=== PATIENT | male | born 1935 | race Caucasian/White ===

== ENCOUNTER 2018-09-16 12:32 | Observation (INO) | payer OTHER ==
[~2018-09-16] VITALS: Ht 185.4 cm; Wt 102.1 kg
[2018-09-16] MEDS ORDERED: ALBUTEROL/IPRATROPIUM 3 ML NEB NEB ONE (13:15)
[2018-09-16 13:33] LABS: BASOPHILS % 0.3 % (0.0-1.0); EOSINOPHILS # (AUTO) 0.1 (0.0-0.4); EOSINOPHILS % 1.2 % (0.0-6.0); HEMATOCRIT 31.3 % (38.2-49.6); LYMPHOCYTES # (AUTO) 1.1 (1.0-3.2); LYMPHOCYTES % 19.1 % (18.0-39.1); MEAN CORPUSCULAR HEMOGLOBIN 34.5 pg (28-32); MEAN CORPUSCULAR HGB CONC 31.9 g/dL (31-35); MEAN CORPUSCULAR VOLUME 107.9 fL (81-99); MONOCYTES # (AUTO) 0.9 (0.2-0.8); MONOCYTES % 14.7 % (4.4-11.3); NEUTROPHILS # (AUTO) 3.8 (2.1-6.9); NEUTROPHILS % 63.7 % (38.7-80.0); PLATELET COUNT 402 x10e3/uL (140-360); RED CELL DISTRIBUTION WIDTH 13.9 % (11.7-14.4)
[2018-09-16 13:37] LABS: INR 1.04; PROTHROMBIN TIME 14.5 seconds (11.9-14.5)
[2018-09-16 13:38] LABS: PARTIAL THROMBOPLASTIN TIME 38.3 seconds (23.8-35.5)
--- NOTE | 2018-09-16 13:45 | Diagnostic Imaging Report ---
Examination: Single AP view of the chest. COMPARISON: None. INDICATION: Shortness of breath DISCUSSION: Lines/tubes: None. Lungs: Pulmonary venous congestion with edema. Scattered calcified granuloma. Pleura: Probable small effusions. Heart and mediastinum: The heart and the mediastinum are unremarkable. Bones and soft tissues: No acute bony abnormalities. IMPRESSION: Interstitial pulmonary edema Signed by: Dr. Ricco Jackman M.D. on 09/16/2018 1:41 PM
[2018-09-16 13:46] LABS: ALANINE AMINOTRANSFERASE 11 IU/L (0-55); ALBUMIN 2.7 g/dL (3.5-5.0); ALBUMIN/GLOBULIN RATIO 0.7 (0.8-2.0); ALKALINE PHOSPHATASE 65 IU/L (40-150); ANION GAP 16.7 mmol/L (8-16); BLOOD UREA NITROGEN 16 mg/dL (7-26); BUN/CREATININE RATIO 15 (6-25); CALCIUM 8.7 mg/dL (8.4-10.2); CARBON DIOXIDE 23 mmol/L (22-29); CHLORIDE 102 mmol/L (98-107); CREATINE KINASE 37 IU/L (30-200); CREATININE, SERUM 1.09 mg/dL (0.72-1.25); EST GLOMERULAR FILTRATION RATE > 60 ML/MIN (60-); GLUCOSE 94 mg/dL (74-118); POTASSIUM 3.7 mmol/L (3.5-5.1); SODIUM 138 mmol/L (136-145)
[2018-09-16 14:02] LABS: ABG HCO3 23 mmol/L (23-28); ABG PCO2 35 mmHg (41-51); ABG PH 7.43 (7.31-7.41); ABG PO2 76 mmHg (80-105)
[2018-09-16] MEDS ORDERED: DIPHENHYDRAMINE HCL 25 MG CAP PO PRN (14:15)
[2018-09-16] MEDS ORDERED: SODIUM CHLORIDE FLUSH 10 ML SYR INJ PRN (14:15)
[2018-09-16] MEDS ORDERED: ASPIRIN 81 MG CHEW TAB PO ONE (14:15)
[2018-09-16] MEDS ORDERED: ALBUTEROL/IPRATROPIUM 3 ML NEB NEB PRN (14:15)
[2018-09-16] MEDS ORDERED: MORPHINE SULFATE 2 MG/ML SYR IV PRN (14:15)
[2018-09-16] MEDS ORDERED: ACETAMINOPHEN 325 MG TAB PO PRN (14:15)
[2018-09-16] MEDS ORDERED: ONDANSETRON HCL INJ 2 MG/ML VIAL IV PRN (14:15)
[2018-09-16] MEDS ORDERED: DEXTROSE 50% SYRINGE 50 ML IV PRN (14:30)
[2018-09-16] MEDS ORDERED: ENOXAPARIN SODIUM INJ 100 MG/ML SYR SC SCH (14:45)
--- OUTSIDE RECORDS SUMMARY | 2018-09-16 14:52 | XMS REPORT ---
Author Author [facility] Address Unknown Phone Unavailable Care Team Providers Care Precision Machine Operator Name Role Phone Sloan SMITH Unavailable Unavailable Problems This patient has no known problems. Allergies, Adverse Reactions, Alerts This patient has no known allergies or adverse reactions. Medications This patient has no known medications. Results Test Description Test Time Test Comments Text Results Atomic Results Result Comments CHEST SINGLE (PORTABLE) 2018-09-16 13:38:00 [place] [address] Patient Name: CRISTINA MEJIA MR #: [id number] : 1935 Age/Sex: 83/M Req #: [id number] Adm Physician: Ordered by: CHASTITY SMITH MD Report #: [id number] Location: ER Room/Bed: Procedure: [id number] DX/CHEST SINGLE (PORTABLE) Exam Date: 09/16/18 Exam Time: 1320 REPORT STATUS: Signed Examination: Single AP view of the chest. COMPARI SON: None. INDICATION: Shortness of breath DISCUSSION: Lines/tubes: None. Lungs: Pulmonary venous congestion with edema. Scattered calcified granuloma. Pleura: Probable small effusions. Heart and mediastinum: The heart and the mediastinum are unremarkable. Bones and soft tissues: No acute bony abnormalities. IMPRESSION: Interstitial pulmonary edema Signed by: Dr. Chirag Díaz M.D. on 09/16/2018 1:41 PM Dictated By: CHIRAG DÍAZ MD 1341 Transcribed By: RODY on 11/16/17 1341 COPY TO: CHASTITY SMITH MD
[2018-09-16] MEDS ORDERED: FUROSEMIDE INJ 10 MG/ML 2 ML VIAL IV ONE (15:10)
[2018-09-16] MEDS ORDERED: FUROSEMIDE INJ 10 MG/ML 4 ML VIAL IV ONE (15:45)
[2018-09-16] MEDS ORDERED: HYDROCODONE/APAP 10MG-325MG TAB PO PRN (15:45)
[2018-09-16] MEDS ORDERED: INSULIN REGULAR, HUMAN 100 UNIT/1 ML 3ML VIAL SQ SCH (16:30)
[2018-09-16] MEDS: INSULIN LISPRO 100 UNIT/1 ML 3ML VIAL SQ SCH ×2 (16:30→21:52)
[2018-09-16 16:52] VITALS: BP 161/71
[2018-09-16] MEDS ORDERED: FAMOTIDINE 20 MG/2 ML VIAL IV SCH (17:00)
[2018-09-16 17:08] VITALS: BP 161/71
[2018-09-16] MEDS: METFORMIN HCL 500 MG TAB CR PO SCH (18:43)
--- NOTE | 2018-09-16 19:46 | Consultation ---
DATE OF CONSULTATION: September 16, 2018 CARDIOLOGY CONSULTATION REFERRING PHYSICIAN: Dr. Ricco Doan. REASON FOR CONSULTATION: Shortness of breath. HISTORY OF PRESENT ILLNESS: Mr. Chu is a pleasant 83-year-old man with history of diabetes mellitus, hypertension, dyslipidemia, morbid obesity, COPD and CAD with prior remote stents placed 5 years ago, who presents to [facility] via the emergency department after being referred from his doctor's office for abnormal chest x-ray findings reportedly with pulmonary edema in the setting of gradually worsening dyspnea on exertion and orthopnea as well as leg edema reported by patient. He denies any chest pain. He denies any syncope or palpitations. REVIEW OF SYSTEMS: A 12-system review negative except for as noted above. ALLERGIES: TO SULFA PER EMR. PAST MEDICAL HISTORY: As per HPI. SOCIAL HISTORY: No active smoking. Denies alcohol or drugs. FAMILY HISTORY: Significant for CAD. PHYSICAL EXAMINATION VITAL SIGNS: Temperature 97.9, heart rate 93 to 100, respiratory rate 22, blood pressure 115/52 up to 161/71, O2 sat 96% on 2 liters per minute nasal cannula. GENERAL: In no acute distress. NECK: JVD elevated to lower third of neck, sitting upright. CHEST: With decreased breath sounds in bilateral bases, scattered rales. CARDIOVASCULAR: Regular rate and rhythm. Normal S1 and S2. A systolic ejection murmur 2/6 crescendo at the right upper base. ABDOMEN: Soft, nontender. EXTREMITIES: 1+ edema to bilateral lower extremities. CARDIOVASCULAR MEDICATIONS: Reviewed. 1. Aspirin 81 mg daily. 2. Tamsulosin 0.4 mg nightly. 3. Atorvastatin 10 mg nightly. 4. Clopidogrel 75 mg daily. 5. Carvedilol 3.125 mg daily. Will switch to q.12 h. dosing. 6. Lisinopril 2.5 mg daily. STUDIES: Reviewed. White blood cells 5.9, hemoglobin 10, platelets 402. INR 1. Creatinine is 1.09. His BNP is mildly elevated at 205. Troponin I is 0.195. Normal transaminases. Chest x-ray with interstitial pulmonary edema. EKG with sinus tachycardia and incomplete left bundle branch block. Echocardiogram reviewed. Left ventricle normal in size with mild concentric left ventricular hypertrophy. Left ventricular ejection fraction estimated at 50% to 55%. Left atrium is enlarged. There is mild aortic stenosis with a mean gradient of 10.5 mmHg and a calculated aortic valve area by continuity equation of 1.9 cm sq. A trace amount of aortic regurgitation noted and trace tricuspid regurgitation noted. ASSESSMENT 1. Crifu-[id number] diastolic heart failure. 2. Pulmonary edema. 3. Aortic stenosis, mild. 4. Low-normal left ventricular systolic function with left ventricular ejection fraction of 50% to 55% and mild left ventricular hypertrophy on echocardiogram. 5. Hypertension. 6. Diabetes mellitus type 2. 7. Dyslipidemia. 8. Reported history of chronic obstructive pulmonary disease. 9. Coronary artery disease with remote stents, followed as outpatient by Nate. RECOMMENDATIONS 1. Uptitrate diuretics via IV route as patient seems to be responding appropriately to this. 2. Continue dual antiplatelet therapy coverage with a prior history of stents. 3. Continue statin. 4. Switch carvedilol to b.i.d. dosing and continue lisinopril at current dose. 5. Anticipate discharge within the following 24 to 48 hours, if continues to note significant improvement, with outpatient followup with Cardiology. Job#: [id number] FRANDY
[2018-09-16 20:00] VITALS: BP 144/66
[2018-09-16] MEDS ORDERED: QUETIAPINE FUMARATE 25 MG TAB PO SCH (21:00)
[2018-09-16] MEDS ORDERED: ATORVASTATIN 10 MG TAB PO SCH (21:00)
[2018-09-16] MEDS ORDERED: TAMSULOSIN HCL 0.4 MG CAP PO SCH (21:00)
[2018-09-16] MEDS: ROPINIROLE HCL 1 MG TAB PO SCH (21:44)
[2018-09-16] MEDS: GABAPENTIN 300 MG CAP PO SCH (21:44)
[2018-09-16] MEDS: HEPARIN SOD (PORCINE) 5,000 UNIT/ML VIAL SC SCH (21:45)
[2018-09-17] VITALS: BP 109/53
[2018-09-17 04:00] VITALS: BP 136/63
[2018-09-17 05:41] LABS: BASOPHILS % 0.5 % (0.0-1.0); EOSINOPHILS # (AUTO) 0.1 (0.0-0.4); EOSINOPHILS % 2.6 % (0.0-6.0); HEMATOCRIT 29.2 % (38.2-49.6); HEMOGLOBIN 9.3 g/dL (14.0-18.0); LYMPHOCYTES # (AUTO) 1.2 (1.0-3.2); LYMPHOCYTES % 27.2 % (18.0-39.1); MEAN CORPUSCULAR HEMOGLOBIN 34.6 pg (28-32); MEAN CORPUSCULAR HGB CONC 31.8 g/dL (31-35); MEAN CORPUSCULAR VOLUME 108.6 fL (81-99); MONOCYTES # (AUTO) 0.8 (0.2-0.8); MONOCYTES % 18.4 % (4.4-11.3); NEUTROPHILS # (AUTO) 2.1 (2.1-6.9); NEUTROPHILS % 50.6 % (38.7-80.0); PLATELET COUNT 376 x10e3/uL (140-360); RED BLOOD COUNT 2.69 x10e6/uL (4.3-5.7); RED CELL DISTRIBUTION WIDTH 13.9 % (11.7-14.4)
[2018-09-17 06:22] LABS: CREATINE KINASE MB 1.4 ng/mL (0-5.0)
[2018-09-17 06:38] LABS: BLOOD UREA NITROGEN 15 mg/dL (7-26); BUN/CREATININE RATIO 13 (6-25); CALCIUM 8.3 mg/dL (8.4-10.2); CARBON DIOXIDE 27 mmol/L (22-29); CHLORIDE 100 mmol/L (98-107); CREATININE, SERUM 1.14 mg/dL (0.72-1.25); EST GLOMERULAR FILTRATION RATE > 60 ML/MIN (60-); GLUCOSE 123 mg/dL (74-118); SODIUM 137 mmol/L (136-145)
[2018-09-17 06:59] LABS: CHOL/HDL RATIO 3.8 (3.9-4.7); MAGNESIUM 1.9 MG/DL (1.3-2.1)
--- NOTE | 2018-09-17 07:12 | Diagnostic Imaging Report ---
PROCEDURE: CHEST SINGLE (PORTABLE) COMPARISON: 09/16/2018. INDICATIONS: SHORTNESS OF BREATH FINDINGS: Lungs remain well-inflated. No new consolidation. Trace left pleural effusion is suspected. No pneumothorax. Scattered calcified granulomata. Stable cardiomediastinal contour with mild prominence of the pulmonary interstitium. No acute osseous abnormality. Surgical clips project over the midepigastric region of the upper abdomen. CONCLUSION: Interstitial pulmonary edema with trace left pleural effusion, grossly unchanged relative to 09/16/2018. Dictated by: Jayson Jack M.D. on 09/17/2018 at 7:21 Electronically approved by: Jayson Jack M.D. on 09/17/2018 at 7:21
[2018-09-17 07:19] LABS: THYROID STIMULATING HORMONE 1.398 uIU/mL (0.350-4.940)
[2018-09-17 07:37] VITALS: BP 127/60
[2018-09-17 08:00] VITALS: BP 127/60
[2018-09-17] MEDS: METFORMIN HCL 500 MG TAB CR PO SCH ×2 (08:19→17:25)
[2018-09-17] MEDS: FUROSEMIDE INJ 10 MG/ML 4 ML VIAL IV SCH ×2 (08:19→17:25)
[2018-09-17] MEDS: INSULIN LISPRO 100 UNIT/1 ML 3ML VIAL SQ SCH ×3 (08:19→16:30)
[2018-09-17] MEDS: GABAPENTIN 300 MG CAP PO SCH ×2 (08:20→17:25)
[2018-09-17] MEDS: ROPINIROLE HCL 1 MG TAB PO SCH ×2 (08:21→17:25)
[2018-09-17] MEDS: HEPARIN SOD (PORCINE) 5,000 UNIT/ML VIAL SC SCH (08:23)
[2018-09-17] MEDS ORDERED: LISINOPRIL 2.5 MG TAB PO SCH (09:00)
[2018-09-17] MEDS ORDERED: ASPIRIN 81 MG CHEW TAB PO SCH (09:00)
[2018-09-17] MEDS ORDERED: ASPIRIN 325 MG TAB EC PO SCH ×2 (09:00)
[2018-09-17] MEDS ORDERED: CARVEDILOL 3.125 MG TAB PO SCH ×2 (09:00)
[2018-09-17] MEDS ORDERED: INSULIN DETEMIR 100 UNIT/ML PEN SQ SCH (09:00)
[2018-09-17] MEDS ORDERED: CLOPIDOGREL BISULFATE 75 MG TAB PO SCH (09:00)
[2018-09-17] MEDS ORDERED: ASPIRIN 81 MG ENTERIC COATED PO SCH (09:00)
[2018-09-17 10:13] LABS: CLARITY,URINE CLEAR (CLEAR); COLOR,URINE YELLOW (YELLOW); LEUKOCYTE ESTERASE ,URINE NEGATIVE (NEGATIVE)
[2018-09-17 10:14] LABS: BILIRUBIN,URINE NEGATIVE (NEGATIVE); KETONES,URINE NEGATIVE (NEGATIVE); NITRITE,URINE NEGATIVE (NEGATIVE); PROTEIN,URINE DIPSTICK NEGATIVE (NEGATIVE); URINE UROBILINOGEN 0.2 mg/dL (0.2 - 1)
[2018-09-17 10:19] LABS: EPITHELIAL CELLS,URINE RARE /LPF
[2018-09-17 12:00] VITALS: BP 133/60
[2018-09-17] MEDS ORDERED: OXYMETAZOLINE HCL 0.05% NAS 1 SPRAY BTL SCH (12:15)
--- NOTE | 2018-09-17 14:27 | Discharge Summary ---
PRIMARY CARE DOCTOR: Mai Mendoza MD, with [facility]. FINAL DIAGNOSIS: Acute diastolic congestive heart failure with pulmonary edema. SECONDARY DIAGNOSES 1. Coronary artery disease with previous stents. 2. Diabetes. 3. Benign prostatic hypertrophy. 4. Chronic obstructive pulmonary disease. GLAZIER METAL FURNITURE: Dr. Mcneal, cardiology. PROCEDURES/STUDIES PERFORMED: Echocardiogram showed normal EF. HISTORY: Per H and P. HOSPITAL COURSE: The patient was admitted. IV Lasix was started. The patient diuresed well. On the day of discharge, the patient was able to ambulate down the hallway and back with oxygen without any shortness of breath and without any desaturation. The repeat chest x-ray still shows interstitial pulmonary edema. However, on exam, the patient sounded pretty clear. I have discussed with Dr. Mcneal. The patient will be discharged home today on p.o. Lasix. Given some urinary symptoms, the patient's UA was repeated, which was negative. He received heparin subcutaneously for DVT prophylaxis. I have updated his primary care doctor about this hospitalization as well. Initially, there was some question whether the patient was in atrial fibrillation. However, the patient remained in sinus on his telemetry monitoring. The patient was seen and examined today. It took 32 minutes total to discharge this patient. CONDITION ON DISCHARGE: Improved. DISCHARGE MEDICATIONS: Please see medication reconciliation form. FOLLOWUP: He will follow up with his primary care doctor in 1 week. OUSMANE COMBS M.D. Job#: [id number] cc:MAI MENDOZA MD
[2018-09-17 16:00] VITALS: BP 127/61
--- NOTE | 2018-09-17 17:09 | Progress Note ---
DATE: September 17, 2018 CARDIOLOGY PROGRESS NOTE SUBJECTIVE: No complaints. OBJECTIVE VITAL SIGNS: Temperature 98.6, heart rate 85, respiratory rate 18, blood pressure 133/60, O2 sat 96%. NECK: No JVD. CHEST: Coarse breath sounds. CARDIOVASCULAR: Regular rate and rhythm. Normal S1 and S2. No S3, no S4. ABDOMEN: Soft. EXTREMITIES: Trace edema. CARDIOVASCULAR MEDICATIONS: Reviewed. 1. Aspirin 81 mg daily. 2. Furosemide 40 mg b.i.d. 3. Heparin 5000 units subcutaneous q.12 h. 4. Lisinopril 2.5 mg daily. 5. Atorvastatin 10 mg nightly. 6. Tamsulosin 0.4 mg nightly. 7. Clopidogrel 75 mg daily. 8. Carvedilol 3.125 mg every 12 hours. LABS: Reviewed. Potassium 4. Creatinine 1.1. Hemoglobin 9.3. White blood cells 4.2. Platelets 376. INR is 1.04. Normal transaminases. ASSESSMENT 1. Hrzad-[id number] diastolic heart failure. 2. Coronary artery disease. 3. Chronic obstructive pulmonary disease. 4. Hypertension. 5. Diabetes mellitus. 6. Dyslipidemia. RECOMMENDATIONS: Overall volume-martinez improved. Blood pressure well controlled. Has remained in sinus rhythm throughout telemetry monitoring. Outpatient followup with his primary care provider and [facility] is advised. Job#: [id number] FRANDY
[2018-09-17] MEDS ORDERED: LASIX40 MG PO (17:30)
== END 2018-09-17 18:26 | disposition home or self-care (01) ==
LOC: ER 12:32 → INTOOBSV 13:56 → ERHOLD 13:56 → MED/SURG3 16:29
PROVIDERS: ADMIT Internal Medicine; ATTEND Internal Medicine
DX: I11.0 Hypertensive heart disease with heart failure (principal); I50.33 Acute on chronic diastolic (congestive) heart failure; J44.9 Chronic obstructive pulmonary disease, unspecified; R09.02 Hypoxemia; E11.9 Type 2 diabetes mellitus without complications; Z87.891 Personal history of nicotine dependence; Z88.2 Allergy status to sulfonamides; E78.5 Hyperlipidemia, unspecified; I25.10 Atherosclerotic heart disease of native coronary artery without angina pectoris; Z95.5 Presence of coronary angioplasty implant and graft; N40.0 Benign prostatic hyperplasia without lower urinary tract symptoms; I35.0 Nonrheumatic aortic (valve) stenosis
CPT/HCPCS: 36415 ×2; 36600; 71045 ×2; 80048; 80053; 80061; 81001; 82550 ×2; 82553 ×2; 82805; 82948 ×2; 83735; 83880; 84443; 84484 ×2; 85025 ×2; 85610; 85730; 87086; 93005; 93306; 94640; 99285; G0378 ×2; J1644 ×2; J1940 ×3